=== PATIENT | male | born 1995 | race Caucasian/White ===

== ENCOUNTER 2017-09-26 10:21 | Emergency (ER) | payer OTHER | END 2017-09-26 12:06 | disposition home or self-care (01) | LOC: M ED 10:21 | DX: S83.91XA Sprain of unspecified site of right knee, initial encounter (principal); X50.1XXA Overexertion from prolonged static or awkward postures, initial encounter; Y92.9 Unspecified place or not applicable; Y93.9 Activity, unspecified; Y99.0 Civilian activity done for income or pay | CPT/HCPCS: 73564 ==

== ENCOUNTER → 2022-09-11 | Day surgery (SDC) | payer OTHER ==
[~2022-09-11] VITALS: Ht 177.8 cm; Wt 83.9 kg
[~2022-09-11] MED LIST: NS 1,000 ML IV ONE; VALA1TAB5 PO
== END | disposition home or self-care (01) ==
LOC: M OPP 08:15
PROVIDERS: ATTEND Internal Medicine Gastroenterology
DX: R19.7 Diarrhea, unspecified (principal); Z53.8 Procedure and treatment not carried out for other reasons

== ENCOUNTER 2022-09-18 12:52 | Day surgery (SDC) | payer OTHER ==
[~2022-09-18] VITALS: Ht 177.8 cm; Wt 86.5 kg
[2022-09-18] MEDS ORDERED: propofoL 200 MG/20 ML VIAL As Ordered ONE ×2 (13:19→15:01)
[2022-09-18] MEDS ORDERED: LIDOCAINE 2% 100MG/5ML SDV (FOR ANES.) As Ordered ONE (13:19)
[2022-09-18 15:35] VITALS: BP 129/72
== END 2022-09-18 15:47 | disposition home or self-care (01) ==
LOC: M OPP 12:52
PROVIDERS: ATTEND Internal Medicine Gastroenterology
DX: K64.8 Other hemorrhoids (principal); K52.9 Noninfective gastroenteritis and colitis, unspecified; Z79.899 Other long term (current) drug therapy; Z80.0 Family history of malignant neoplasm of digestive organs; Z80.3 Family history of malignant neoplasm of breast; Z84.0 Family history of diseases of the skin and subcutaneous tissue